=== PATIENT | male | born 1955 | race Hispanic/Latino ===

== ENCOUNTER 2016-04-08 09:37 | Emergency (ER) | payer SELFPAY ==
[2016-04-08 10:40] LABS: Hematocrit 47.5 % (35.5-45.6); Mean Corpuscular HGB Conc 34 % (32-34); Mean Corpuscular Hemoglobin 33 pg (28-32); Mean Corpuscular Volume 97 fl (84-94); Platelet Count 145 K/mm3 (140-440); Red Cell Distribution Width 14.8 % (13.2-15.2); White Blood Count 5.7 K/mm3 (4.5-11.0)
[2016-04-08 10:43] LABS: BUN/Creatinine Ratio 19.23; Blood Urea Nitrogen 25 mg/dL (9-20); Calcium 8.5 mg/dL (8.4-10.2); Carbon Dioxide 23 mmol/L (22-30); Chloride 95.2 mmol/L (98-107); Glucose 122 mg/dL (75-100); Potassium 4.4 mmol/L (3.6-5.0); Sodium 135 mmol/L (137-145)
[2016-04-08 10:45] LABS: Anion Gap 21 mmol/L
[2016-04-08 11:29] LABS: Basophils % (Manual) 0 % (0.0-1.8); Blastocytes % (Manual) 0 %
--- NOTE | 2016-04-08 11:31 | Emergency Department Report ---
HPI - General Chief Complaint: Dyspnea/Respdistress Time Seen by Provider: 04/08/16 10:58 - HPI HPI: Room 21 The patient is a 61-year-old male presenting with a chief complaint of shortness of breath. The patient states for the past 2 weeks his had constant shortness of breath and addition to dyspnea on exertion. The patient missed her cough is productive of clear white and yellow sputum. Patient admits to subjective fever. Patient denies chest pain. Patient denies peripheral edema Location: Lungs Duration: 2 weeks Quality: Shortness of breath Severity: Moderate Modifying factors: Exertion worsens shortness of breath Context: [see above] Mode of transportation: [not driving] ED Past Medical Hx - Past Medical History Previous Medical History?: Yes Hx COPD: Yes (no home O2) Additional medical history: Gout - Surgical History Past Surgical History?: No - Family History Family history: no significant - Social History Smoking Status: Former Smoker (none 1 week) Substance Use Type: None - Medications Home Medications: Home Medications Medication Instructions Recorded Confirmed Last Taken Type No Known Home Medications [No 04/08/16 04/08/16 Unknown History Reported Home Medications] ED Review of Systems ROS: Stated complaint: COPD Other details as noted in HPI Comment: All other systems reviewed and negative Constitutional: fever Eyes: denies: eye pain, eye discharge, vision change ENT: denies: ear pain, throat pain Respiratory: cough, shortness of breath, SOB with exertion Cardiovascular: dyspnea on exertion Endocrine: no symptoms reported Gastrointestinal: denies: abdominal pain, nausea, diarrhea Genitourinary: denies: urgency, dysuria Musculoskeletal: denies: back pain, joint swelling, arthralgia Skin: denies: rash, lesions Neurological: denies: headache, weakness, paresthesias Psychiatric: denies: anxiety, depression Hematological/Lymphatic: denies: easy bleeding, easy bruising Physical Exam - Physical Exam Vital Signs: Vital Signs 04/08/16 04/08/16 04/08/16 09:55 10:05 10:06 Temperature 98.8 F Pulse Rate 90 Respiratory 28 H Rate Blood Pressure 89/58 109/73 O2 Sat by Pulse 90 93 94 Oximetry 04/08/16 04/08/16 04/08/16 10:07 10:09 10:11 Temperature Pulse Rate 103 H 103 H 103 H Respiratory 16 18 28 H Rate Blood Pressure 109/73 109/73 109/73 O2 Sat by Pulse 90 91 90 Oximetry 04/08/16 04/08/16 04/08/16 10:13 10:15 10:30 Temperature Pulse Rate 97 H 102 H 89 Respiratory 37 H 18 30 H Rate Blood Pressure 109/73 101/61 109/63 O2 Sat by Pulse 95 92 92 Oximetry 04/08/16 04/08/16 10:45 11:00 Temperature Pulse Rate 93 H 89 Respiratory 30 H 31 H Rate Blood Pressure 105/70 95/62 O2 Sat by Pulse 89 90 Oximetry Physical Exam: GENERAL: The patient is well-developed well-nourished male lying on stretcher not appearing to be in acute distress HEENT: Normocephalic. Atraumatic. Extraocular motions are intact. Patient has moist mucous membranes. NECK: Supple. Trachea midline CHEST/LUNGS: Clear to auscultation. There is no respiratory distress noted. HEART/CARDIOVASCULAR: Regular. There is no tachycardia. There is no gallop rub or murmur. ABDOMEN: Abdomen is soft, nontender. Patient has normal bowel sounds. There is no abdominal distention. SKIN: There is no rash. There is no edema. There is no diaphoresis. NEURO: The patient is awake, alert, and oriented. The patient is cooperative. The patient has normal speech MUSCULOSKELETAL: There is no evidence of acute injury. ED Course Vital Signs 04/08/16 04/08/16 04/08/16 09:55 10:05 10:06 Temperature 98.8 F Pulse Rate 90 Respiratory 28 H Rate Blood Pressure 89/58 109/73 O2 Sat by Pulse 90 93 94 Oximetry 04/08/16 04/08/16 04/08/16 10:07 10:09 10:11 Temperature Pulse Rate 103 H 103 H 103 H Respiratory 16 18 28 H Rate Blood Pressure 109/73 109/73 109/73 O2 Sat by Pulse 90 91 90 Oximetry 04/08/16 04/08/16 04/08/16 10:13 10:15 10:30 Temperature Pulse Rate 97 H 102 H 89 Respiratory 37 H 18 30 H Rate Blood Pressure 109/73 101/61 109/63 O2 Sat by Pulse 95 92 92 Oximetry 04/08/16 04/08/16 10:45 11:00 Temperature Pulse Rate 93 H 89 Respiratory 30 H 31 H Rate Blood Pressure 105/70 95/62 O2 Sat by Pulse 89 90 Oximetry ED Medical Decision Making - Lab Data Result diagrams: 04/08/16 10:10 04/08/16 10:10 Laboratory Tests 04/08/16 04/08/16 04/08/16 10:10 10:10 11:52 WBC 5.7 RBC 4.90 Hgb 16.0 H Hct 47.5 H MCV 97 H MCH 33 H MCHC 34 RDW 14.8 Plt Count 145 [place] % (Auto) Pesticide Control Inspector Add Manual Diff Complete Total Counted 100 Seg Neuts % (Manual) 58.0 Band Neutrophils % 6.0 Lymphocytes % (Manual) 21.0 Reactive Lymphs % (Man) 0 Monocytes % (Manual) 14.0 H Eosinophils % (Manual) 1.0 Basophils % (Manual) 0 Metamyelocytes % 0 Myelocytes % 0 Promyelocytes % 0 Blast Cells % 0 Nucleated RBC % Not Reportable Seg Neutrophils # Man 3.3 Band Neutrophils # 0.3 Lymphocytes # (Manual) 1.2 Abs React Lymphs (Man) 0.0 Monocytes # (Manual) 0.8 Eosinophils # (Manual) 0.1 Basophils # (Manual) 0.0 Metamyelocytes # 0.0 Myelocytes # 0.0 Promyelocytes # 0.0 Blast Cells # 0.0 WBC Morphology Not Reportable Hypersegmented Neuts Not Reportable Hyposegmented Neuts Not Reportable Hypogranular Neuts Not Reportable Smudge Cells Not Reportable Toxic Granulation Not Reportable Toxic Vacuolation Not Reportable Dohle Bodies Not Reportable Pelger-Huet Anomaly Not Reportable Merari Rods Not Reportable Platelet Estimate Appears normal Clumped Platelets Not Reportable Plt Clumps, EDTA Not Reportable Large Platelets Few Giant Platelets Not Reportable Platelet Satelliting Not Reportable Plt Morphology Comment Not Reportable RBC Morphology Normal Dimorphic RBCs Not Reportable Polychromasia Not Reportable Hypochromasia Not Reportable Poikilocytosis Not Reportable Anisocytosis Not Reportable Microcytosis Not Reportable Macrocytosis Not Reportable Spherocytes Not Reportable Pappenheimer Bodies Not Reportable Sickle Cells Not Reportable Target Cells Not Reportable Tear Drop Cells Not Reportable Ovalocytes Not Reportable Helmet Cells Not Reportable [place] Bodies Not Reportable Shelley Rings Not Reportable [place] Cells Not Reportable Bite Cells Not Reportable Crenated Cell Not Reportable Elliptocytes Not Reportable Acanthocytes (Spur) Not Reportable Rouleaux Not Reportable Hemoglobin C Crystals Not Reportable Schistocytes Not Reportable Malaria parasites Not Reportable [place] Bodies Not Reportable Hem Pathologist Commnt No POC ABG pH 7.357 POC ABG pCO2 39.9 POC ABG pO2 51 L POC ABG HCO3 22.4 POC ABG Total CO2 24 POC ABG O2 Sat 84 POC ABG Base Excess -3 FiO2 21 Sodium 135 L Potassium 4.4 Chloride 95.2 L Carbon Dioxide 23 Anion Gap 21 BUN 25 H Creatinine 1.3 Estimated GFR 57 BUN/Creatinine Ratio 19.23 Glucose 122 H Calcium 8.5 Troponin T < 0.010 NT-Pro-B Natriuret Pep 73.90 - EKG Data -: EKG Interpreted by Me EKG shows normal: sinus rhythm Rate: tachycardia (103 bpm) - EKG Data When compared to previous EKG there are: previous EKG unavailable Interpretation: other (no ischemic changes) - Radiology Data Radiology results: report reviewed (CT chest), image reviewed (chest x-ray, CT chest) interpreted by me: Chest x-ray-no focal infiltrates, no pneumothorax CT chest (read by radiologist)-no evidence of pulmonary emboli. Bilateral emphysematous changes. Minimal right upper lobe pleural parenchymal scarring - Differential Diagnosis COPD, PE, pneumonia, pneumothorax Critical care attestation.: If time is entered above; I have spent that time in minutes in the direct care of this critically ill patient, excluding procedure time. ED Disposition Clinical Impression: Shortness of breath, Hypoxia, COPD (chronic obstructive pulmonary disease) Disposition: OP ADMITTED IP TO THIS HOSP Is pt being admited?: Yes Does the pt Need Aspirin: Yes Condition: Serious Instructions: Chronic Obstructive Pulmonary Disease (ED) Referrals: PRIMARY CARE, [Primary Care Provider] - 3-5 Days Time of Disposition: 13:40 (hospitalist paged)
[2016-04-08 11:38] LABS: Diff Status Complete; Large Platelets Few; RBC Morphology Normal
[2016-04-08] MEDS ORDERED: NACL ONE (11:49)
[2016-04-08 11:56] LABS: ISTAT Base Excess -3; ISTAT DEVICE 0; ISTAT HCO3 22.4; ISTAT PCO2 39.9 (35-45); ISTAT PH 7.357 (7.35-7.45); ISTAT PO2 51 (80-105); ISTAT SO2 84; ISTAT TCO2 24
--- NOTE | 2016-04-08 12:07 | Admit Criteria Form ---
Admission Criteria Documentation: PULMONARY DISEASE GRG Clinical Indications for Admission to Inpatient Care ( Place 'X' for any and all applicable criteria): Hospital admission is needed for appropriate care of the patient because of ANY ONE of the following(1): [ ]I. Impending or actual respiratory arrest ( Use Respiratory Failure Criteria for severe respiratory disease and long-term mechanical ventilation patients) (4) [ ]II. Severe airflow or ventilation abnormalities (not responsive to emergency and observation care treatment as appropriate) as indicated by ANY ONE of the following(5)(6)(7)(8) : [ ]a) PCO2 > 42 mm Hg (5.6 kPa) and pH < 7.35 (new) [ ]b) Documented PCO2 increase > 5 mm Hg (0.7 kPa) from disease baseline [ ]c) Airflow measurements[A] < 60% of previous best or predicted ( e.g., PEF <300 L/minute) despite intensive emergent treatment[B] [ ]d) Required respiratory treatments that are performable only in acute inpatient setting [ X]III. Severe respiratory findings (not responsive to emergency and observation care treatment as appropriate) including ANY ONE of the following(5)(8)(9): [X ]a) Respiratory distress as indicated by ALL of the following(5)(10) : [X ]i) Patient with ANY ONE of the following: [X ]1) Dyspnea (difficulty breathing) [ ]2) Abnormal breathing pattern (eg, chest retractions) [ ]3) Tachypnea [ ]4) Other evidence of difficulty breathing [ X]ii) Evidence of respiratory compromise indicated by ANY ONE of the following: [X ]1) Hypoxemia [ ]2) Altered mental status [ ]3) Other evidence of respiratory compromise (eg, pulmonary edema on chest x-ray) [ ]b) Stridor [ ]c) Gross hemoptysis(11) [ ]d) Acute cyanosis [ ]IV. High-risk pulmonary infection as indicated by ANY ONE of the following( 19)(20)(21)(22): [ ]a) Temperature less than 95 degrees F(35 degrees C) or greater than 103.1 degrees F(39.5 degrees C) [ ]b) Hemodynamic instability that remains after emergency or observation level care (as appropriate) [ ]c) Immunocompromised patient (eg, AIDS, post transplant, neutropenic) [ ]d) History of severe COPD [ ]e) History of severely symptomatic congestive heart failure [ ]f) Other high-risk comorbidity (eg, poorly controlled diabetes, cirrhosis, chronic renal insufficiency) [ ]g) Hypoxemia (new) [ ]h) Outpatient, observation, or recovery facility therapy has failed, is not appropriate, or is not feasible [ ]V. Severe atelectasis or lung collapse(15)(16) [ ]. Tuberculosis requiring inpatient treatment as indicated by ANY ONE of the following(17)(18): [ ]a) New positive acid-fast bacilli sputum smear [ ]b) Positive acid-fast bacilli smear (under current treatment), with ANY ONE of the following: [ ]i) Unexposed household contacts [ ]ii) Infants or immunosuppressed household contacts [ ]iii) Patient unable or unwilling to avoid exposing others [ ]iv) Severe immunocompromised patient (eg, AIDS, post transplant, neutropenic) [ ]VII. Empyema or lung abscess(13)(14) [ ]VIII. Severe pulmonary arterial hypertension or pulmonary vascular disease requiring inpatient care indicated by ANY ONE of the following(24)(25): [ ]a) Initiation or change of vasodilators (IV, subcutaneous, or inhaled) or other vasoactive medications needed [ ]b) IV anticoagulation needed (eg, immediate anticoagulation necessary, alternatives not appropriate) [ ]c) Arterial or pulmonary artery catheter monitoring needed due to infusion or other treatment [ ]IX. Chronic lung disease with severe deterioration (not responsive to emergency and observation care treatment as appropriate) as indicated by ANY ONE of the following (6)(12): [ ]a) SaO2 5% below baseline in patient with chronic hypoxemia [ ]b) New requirement for supplemental oxygen to keep SaO2 at baseline or acceptable level [ ]c) Required supplemental oxygen performable only in acute inpatient setting [ ]d) Severe airflow or ventilation abnormalities [ ]e) Rapid rate of exacerbation onset [ ]f) Previously mobile patient unable to walk between rooms [ ]g) Inability to eat or sleep due to dyspnea [ ]h) Altered mental status [ ]X. Cystic fibrosis with severe deterioration as indicated by ANY ONE of the following(26)(27): [ ]a) Severe exacerbation that does not respond to intensified home therapy [ ]b) Pneumonia [ ]c) Hemoptysis [ ]d) Atelectasis [ ]e) Pneumothorax [ ]f) Respiratory failure [ ]g) Severe exacerbation with patient unable to perform prescribed treatments at home [ ]XI. Severe right heart failure as indicated by ANY ONE of the following(24) (25): [ ]a) Increasing organ failure (eg, liver congestion with significant and worsening or new elevation of transaminases) [ ]b) Anasarca [ ]c) Angina that requires inpatient care (eg, not treatable in emergency or observation level of care) [ ]d) Respiratory distress [ ]e) Syncope [ ]f) SBP < 90 mm Hg (new) [ ]XII. Injury requiring inpatient care (medical) as indicated by ANY ONE of the following(28): [ ]a) Significant inhalation injury (eg, smoke inhalation, other toxic inhalation) (29)(30)(31) [ ]b) Airway obstruction that remains or is unstable after emergency or observation level care(32) [ ]c) Severe pain requiring acute inpatient management [ ]d) Lung contusion [ ]e) Bronchial tree injury [ ]f) Air or fat emboli(33) [ ]g) Other injury not treatable in emergency or observation level care (eg, hemothorax) (34) [ ]XIII. Pulmonary hemorrhage or significant hemoptysis(11)(35)(36) [ ]XIV. Inpatient palliative care needed[C](37)(38)(39)(40) [ ]XV. Complications of lung transplant (eg, rejection, failure, respiratory infection) (23) [ ]XVI. Pulmonary Disease and ANY ONE of the following: [ ]a) General Admission Criteria [ ]b) Pediatric General Admission Criteria The original [facility] content created by [facility] has been revised. The portions of the content which have been revised are identified through the use of italic text or in bold, and [facility] has neither reviewed nor approved the modified material. All other unmodified content is copyright [facility]. Please see references footnoted in the original [facility] edition 2016
--- NOTE | 2016-04-08 13:33 | Cat Scan Report ---
CT angiography of the chest with 3-D reconstructed images. Findings: There is no evidence of pulmonary emboli. Multiple small emphysematous blebs are seen in the upper lobes bilaterally. A Small area of pleural-parenchymal scarring is seen in the posterior upper right lobe. No pulmonary masses or nodules are seen. There is no pleural fluid. Multiple nonenlarged lymph nodes are seen the mediastinum. The hilar regions are normal. Impression: 1. No evidence of pulmonary emboli. 2. Bilateral emphysematous changes. Minimal right upper lobe pleural-parenchymal scarring.
--- NOTE | 2016-04-08 17:44 | Event Note ---
Date: 04/08/16 See H/p in reports
[2016-04-08 17:51] VITALS: BP 103/72
[2016-04-08] MEDS ORDERED: MILK OF MAGNESIA PO PRN (17:52)
[2016-04-08] MEDS ORDERED: PERCOCET 5/325 PO PRN (17:52)
[2016-04-08] MEDS ORDERED: DULCOLAX PR PRN (17:52)
[2016-04-08] MEDS ORDERED: ZOFRAN IV PRN (17:52)
[2016-04-08] MEDS ORDERED: TYLENOL PO PRN (17:52)
[2016-04-08] MEDS ORDERED: DUONEB 0.5 MG-3 MG/3 ML SOLN IH PRN (17:58)
[2016-04-08] MEDS ORDERED: LEVAQUIN 750MG/150ML 150 ML IV SCH (18:00)
[2016-04-08] MEDS ORDERED: DUONEB 0.5 MG-3 MG/3 ML SOLN IH SCH (20:00)
[2016-04-09] MEDS ORDERED: LOVENOX SUB-Q SCH (10:00)
--- NOTE | 2016-04-09 10:27 | XRay Report ---
Portable chest: The bronchovascular markings are somewhat coarse in the lower lobes the worse on the right than left. There is no focal infiltrate and no pleural change. The heart is normal in size. The vessels are not distended. I have no prior study for comparison. Impression: The findings raise suspicion of bronchial inflammatory changes predominantly on the right. These may be chronic. No pneumonia identified.
== END 2016-04-08 17:51 | disposition left against medical advice (07) ==
LOC: ED 09:37
DX: J44.9 Chronic obstructive pulmonary disease, unspecified (principal); R09.02 Hypoxemia; Z87.891 Personal history of nicotine dependence
CPT/HCPCS: 36415; 71010; 71275; 80048; 82803; 83036; 83880; 84484; 85007; 85025; 93005; 93010; 99285; Q9967

== ENCOUNTER 2016-04-09 08:27 | Emergency (ER) | payer SELFPAY ==
[2016-04-09 08:37] VITALS: BP 94/61
--- NOTE | 2016-04-09 09:53 | Emergency Department Report ---
Chief Complaint: Dyspnea/Respdistress Stated Complaint: RUSSELL Time Seen by Provider: 04/09/16 09:52 - Exam Vital Signs: Vital Signs 04/09/16 08:33 Temperature 98 F Pulse Rate 77 Blood Pressure 94/61 O2 Sat by Pulse 98 Oximetry MSE screening note: Focused history and physical exam performed. Due to findings the following was ordered: ED Disposition for MSE Condition: Stable
== END 2016-04-09 08:34 | disposition left against medical advice (07) ==
LOC: ED 08:27
DX: R06.02 Shortness of breath (principal); R06.00 Dyspnea, unspecified; Z53.21 Procedure and treatment not carried out due to patient leaving prior to being seen by health care provider